=== PATIENT | female | born 1995 | race Caucasian/White ===

== ENCOUNTER 2023-05-29 01:06 | Emergency (ER) | payer MEDICAID ==
[~2023-05-29] VITALS: Ht 177.8 cm; Wt 108.9 kg
[~2023-05-29 01:06] MED LIST: ALBUTEROL0.09 MG/A2 IH; BIRTH CONTROL1 EAC1 PO; FLOMAX0.4 MG PO; HYDROCODONE BIT1 T11 PO; MEDROL DOSEPAK4 MG PO; VITAMINS & MINE1 TAB PO
[2023-05-29 01:23] VITALS: BP 138/94
[2023-05-29] MEDS ORDERED: PREDNISONE10 M1 PO (01:26)
[2023-05-29] MEDS ORDERED: CIPRODEX 0.3%-7.5 ML OT (01:26)
== END 2023-05-29 01:44 | disposition home or self-care (01) ==
LOC: ED 01:06
DX: H66.92 Otitis media, unspecified, left ear (principal); H60.92 Unspecified otitis externa, left ear; Z79.899 Other long term (current) drug therapy